=== PATIENT | female | born 1990 | race Caucasian/White ===

== ENCOUNTER 2021-07-06 14:24 | Emergency (ER) | payer MEDICAID, OTHER ==
[~2021-07-06] VITALS: Ht 165.1 cm; Wt 127.3 kg
[2021-07-06] MEDS ORDERED: LEVO200T4 (14:40)
[2021-07-06] MEDS ORDERED: SERT50TA29 PO (14:40)
[2021-07-06] MEDS ORDERED: PANT40TA29 (14:40)
[2021-07-06 17:44] LABS: BASO # 0.1 10^3/uL (0.0-0.2); BASO % 0.7 % (0.0-1.0); EOS # 0.2 10^3/uL (0.0-0.5); EOS % 2.1 % (0.0-3.0); HEMATOCRIT 34.1 % (36.0-47.0); HEMOGLOBIN 10.8 g/dl (12.0-15.5); LYMPH # 2.6 10^3/uL (1.5-5.0); MEAN CORPUSCULAR HEMOGLOBIN 27.6 pg (27.0-33.0); MEAN CORPUSCULAR HGB CONC 31.7 g/dl (32.0-36.5); MEAN CORPUSCULAR VOLUME 87.2 fl (80.0-96.0); MONO # 0.4 10^3/uL (0.0-0.8); MONO % 4.6 % (2.0-8.0); NEUTROPHILS # 5.4 10^3/uL (1.5-8.5); PLATELET COUNT, AUTOMATED 309 10^3/uL (150-450); RED BLOOD COUNT 3.91 10^6/uL (4.00-5.40); WHITE BLOOD COUNT 8.7 10^3/uL (4.0-10.0)
[2021-07-06 18:03] LABS: ALBUMIN 3.9 GM/DL (3.2-5.2); ALT/SGPT 26 U/L (12-78); BILIRUBIN,DIRECT < 0.1 MG/DL (0.0-0.2); BILIRUBIN,TOTAL 0.3 MG/DL (0.2-1.0); LIPASE 78 U/L (73-393)
--- OUTSIDE RECORDS SUMMARY | 2021-07-06 18:31 | CCD ---
Author Author [facility] Organization [facility] Address Unknown Phone Unavailable Care Team Providers Care Fixed Income Portfolio Manager Name Role Phone Raleigh OAKES MD Unavailable Unavailable Raleigh OAKES MD Unavailable Unavailable Raleigh OAKSE MD Unavailable Unavailable Raleigh OAKES MD Unavailable Unavailable Raleigh OAKES MD Unavailable Unavailable Raleigh OAKES MD Unavailable Unavailable Raleigh OAKES MD Unavailable Unavailable Raleigh OAKES MD Unavailable Unavailable Raleigh OAKES MD Unavailable Unavailable Raleigh OAKES MD Unavailable Unavailable Raleigh OAKES MD Unavailable Unavailable Raleigh OAKES MD Unavailable Unavailable Raleigh OAKES MD Unavailable Unavailable Raleigh OAKES MD Unavailable Unavailable Raleigh OAKES MD Unavailable Unavailable Raleigh OAKES MD Unavailable Unavailable Raleigh OAKES MD Unavailable Unavailable Raleigh OAKES MD Unavailable Unavailable Raleigh OAKES MD Unavailable Unavailable Raleigh OAKES MD Unavailable Unavailable Raleigh OAKES MD Unavailable Unavailable Raleigh OAKES MD Unavailable Unavailable Raleigh OAKES MD Unavailable Unavailable Raleigh OAKES MD Unavailable Unavailable HAMPTON, ELISABETH MD Unavailable Unavailable HAMPTON, ELISABETH MD Unavailable Unavailable HAMPTON, ELISABETH MD Unavailable Unavailable HAMPTON, ELISABETH MD Unavailable Unavailable HAMPTON, ELISABETH MD Unavailable Unavailable HAMPTON, ELISABETH MD Unavailable Unavailable HAMPTON, ELISABETH MD Unavailable Unavailable HAMPTON, ELISABETH MD Unavailable Unavailable HAMPTON, ELISABETH MD Unavailable Unavailable HAMPTON, ELISABETH MD Unavailable Unavailable HAMPTON, ELISABETH MD Unavailable Unavailable HAMPTON, ELISABETH MD Unavailable Unavailable HAMPTON, ELISABETH MD Unavailable Unavailable HAMPTON, ELISABETH MD Unavailable Unavailable HAMPTON, ELISABETH MD Unavailable Unavailable HAMPTON, ELISABETH MD Unavailable Unavailable HAMPTON, ELISABETH MD Unavailable Unavailable HAMPTON, ELISABETH MD Unavailable Unavailable HAMPTON, ELISABETH MD Unavailable Unavailable HAMPTON, ELISABETH MD Unavailable Unavailable HAMPTON, ELISABETH MD Unavailable Unavailable HAMPTON, ELISABETH MD Unavailable Unavailable HAMPTON, ELISABETH MD Unavailable Unavailable HAMPTON, ELISABETH MD Unavailable Unavailable HAMPTON, ELISABETH MD Unavailable Unavailable HAMPTON, ELISABETH MD Unavailable Unavailable HAMPTON, ELISABETH MD Unavailable Unavailable HAMPTON, ELISABETH MD Unavailable Unavailable HAMPTON, ELISABETH MD Unavailable Unavailable HAMPTON, ELISABETH MD Unavailable Unavailable HAMPTON, ELISABETH MD Unavailable Unavailable HAMPTON, ELISABETH MD Unavailable Unavailable HAMPTON, ELISABETH MD Unavailable Unavailable HAMPTON, ELISABETH MD Unavailable Unavailable HAMPTON, ELISABETH MD Unavailable Unavailable HAMPTON, ELISABETH MD Unavailable Unavailable HAMPTON, ELISABETH MD Unavailable Unavailable HAMPTON, ELISABETH MD Unavailable Unavailable HAMPTON, ELISABETH MD Unavailable Unavailable HAMPTON, ELISABETH MD Unavailable Unavailable HAMPTON, ELISABETH MD Unavailable Unavailable HAMPTON, ELISABETH MD Unavailable Unavailable HAMPTON, ELISABETH MD Unavailable Unavailable HAMPTON, ELISABETH MD Unavailable Unavailable HAMPTON, ELISABETH MD Unavailable Unavailable HAMPTON, ELISABETH MD Unavailable Unavailable HAMPTON, ELISABETH MD Unavailable Unavailable HAMPTON, ELISABETH MD Unavailable Unavailable HAMPTON, ELISABETH MD Unavailable Unavailable HAMPTON, ELISABETH MD Unavailable Unavailable HAMPTON, ELISABETH MD Unavailable Unavailable HAMPTON, ELISABETH MD Unavailable Unavailable ELISABETH HAMPTON MD Unavailable Unavailable ELISABETH HAMPTON MD Unavailable Unavailable ELISABETH HAMPTON MD Unavailable Unavailable ELISABETH HAMPTON MD Unavailable Unavailable ELISABETH HAMPTON MD Unavailable Unavailable ELISABETH HAMPTON MD Unavailable Unavailable ELISABETH HAMPTON MD Unavailable Unavailable ELISABETH HAMPTON MD Unavailable Unavailable ELISABETH HAMPTON MD Unavailable Unavailable ELISABETH HAMPTON MD Unavailable Unavailable ELISABETH HAMPTON MD Unavailable Unavailable ELISABETH HAMPTON MD Unavailable Unavailable ELISABETH HAMPTON MD Unavailable Unavailable ELISABETH HAMPTON MD Unavailable Unavailable ELISABETH HAMPTON MD Unavailable Unavailable ELISABETH HAMPTON MD Unavailable Unavailable ELISABETH HAMPTON MD Unavailable Unavailable ELISABETH HAMPTON MD Unavailable Unavailable SATNAM, B VERENICE AIR CONDITIONER INSTALLER HELPER Unavailable Unavailable SATNAM, B VERENICE AIR CONDITIONER INSTALLER HELPER Unavailable Unavailable SATNAM, B VERENICE AIR CONDITIONER INSTALLER HELPER Unavailable Unavailable SATNAM, B VERENICE AIR CONDITIONER INSTALLER HELPER Unavailable Unavailable SATNAM, B VERENICE AIR CONDITIONER INSTALLER HELPER Unavailable Unavailable SATNAM, B VERENICE AIR CONDITIONER INSTALLER HELPER Unavailable Unavailable SATNAM, B VERENICE AIR CONDITIONER INSTALLER HELPER Unavailable Unavailable SATNAM, B VERENICE AIR CONDITIONER INSTALLER HELPER Unavailable Unavailable SATNAM, B VERENICE AIR CONDITIONER INSTALLER HELPER Unavailable Unavailable SATNAM, B VERENICE AIR CONDITIONER INSTALLER HELPER Unavailable Unavailable SATNAM, B VERENICE AIR CONDITIONER INSTALLER HELPER Unavailable Unavailable SATNAM, B VERENICE AIR CONDITIONER INSTALLER HELPER Unavailable Unavailable SATNAM, B VERENICE AIR CONDITIONER INSTALLER HELPER Unavailable Unavailable SATNAM, B VERENICE AIR CONDITIONER INSTALLER HELPER Unavailable Unavailable SATNAM, B VERENICE AIR CONDITIONER INSTALLER HELPER Unavailable Unavailable SATNAM, B VERENICE AIR CONDITIONER INSTALLER HELPER Unavailable Unavailable SATNAM, B VERENICE AIR CONDITIONER INSTALLER HELPER Unavailable Unavailable SATNAM, B VERENICE AIR CONDITIONER INSTALLER HELPER Unavailable Unavailable SATNAM, B VERENICE AIR CONDITIONER INSTALLER HELPER Unavailable Unavailable SATNAM, B VERENICE AIR CONDITIONER INSTALLER HELPER Unavailable Unavailable SATNAM, B VERENICE AIR CONDITIONER INSTALLER HELPER Unavailable Unavailable SATNAM, B VERENICE AIR CONDITIONER INSTALLER HELPER Unavailable Unavailable SATNAM, B VERENICE AIR CONDITIONER INSTALLER HELPER Unavailable Unavailable SATNAM, B VERENICE AIR CONDITIONER INSTALLER HELPER Unavailable Unavailable SATNAM, B VERENICE AIR CONDITIONER INSTALLER HELPER Unavailable Unavailable SATNAM, B VERENICE AIR CONDITIONER INSTALLER HELPER Unavailable Unavailable SATNAM, B VERENICE AIR CONDITIONER INSTALLER HELPER Unavailable Unavailable SATNAM, B VERENICE AIR CONDITIONER INSTALLER HELPER Unavailable Unavailable SATNAM, B VERENICE AIR CONDITIONER INSTALLER HELPER Unavailable Unavailable SATNAM, B VERENICE AIR CONDITIONER INSTALLER HELPER Unavailable Unavailable SATNAM, B VERENICE AIR CONDITIONER INSTALLER HELPER Unavailable Unavailable SATNAM, B VERENICE AIR CONDITIONER INSTALLER HELPER Unavailable Unavailable SATNAM, B VERENICE AIR CONDITIONER INSTALLER HELPER Unavailable Unavailable SATNAM, B VERENICE AIR CONDITIONER INSTALLER HELPER Unavailable Unavailable SATNAM, B VERENICE AIR CONDITIONER INSTALLER HELPER Unavailable Unavailable SATNAM, B VERENICE AIR CONDITIONER INSTALLER HELPER Unavailable Unavailable SATNAM, B VERENICE AIR CONDITIONER INSTALLER HELPER Unavailable Unavailable SATNAM, B VERENICE AIR CONDITIONER INSTALLER HELPER Unavailable Unavailable SATNAM, B VERENICE AIR CONDITIONER INSTALLER HELPER Unavailable Unavailable SATNAM, B VERENICE AIR CONDITIONER INSTALLER HELPER Unavailable Unavailable SATNAM, B VERENICE AIR CONDITIONER INSTALLER HELPER Unavailable Unavailable SATNAM, B VERENICE AIR CONDITIONER INSTALLER HELPER Unavailable Unavailable SATNAM, B VERENICE AIR CONDITIONER INSTALLER HELPER Unavailable Unavailable SATNAM, B VERENICE AIR CONDITIONER INSTALLER HELPER Unavailable Unavailable SATNAM, B VERENICE AIR CONDITIONER INSTALLER HELPER Unavailable Unavailable SATNAM, B VERENICE AIR CONDITIONER INSTALLER HELPER Unavailable Unavailable SATNAM, B VERENICE AIR CONDITIONER INSTALLER HELPER Unavailable Unavailable SATNAM, B VERENICE AIR CONDITIONER INSTALLER HELPER Unavailable Unavailable SATNAM, B VERENICE AIR CONDITIONER INSTALLER HELPER Unavailable Unavailable SATNAM, B VERENICE AIR CONDITIONER INSTALLER HELPER Unavailable Unavailable SATNAM, B VERENICE AIR CONDITIONER INSTALLER HELPER Unavailable Unavailable SATNAM, B VERENICE AIR CONDITIONER INSTALLER HELPER Unavailable Unavailable SATNAM, B VERENICE AIR CONDITIONER INSTALLER HELPER Unavailable Unavailable SATNAM, B VERENICE AIR CONDITIONER INSTALLER HELPER Unavailable Unavailable SATNAM, B VERENICE AIR CONDITIONER INSTALLER HELPER Unavailable Unavailable SATNAM, B VERENICE AIR CONDITIONER INSTALLER HELPER Unavailable Unavailable SATNAM, B VERENICE AIR CONDITIONER INSTALLER HELPER Unavailable Unavailable SATNAM, B VERENICE AIR CONDITIONER INSTALLER HELPER Unavailable Unavailable SATNAM, B VERENICE AIR CONDITIONER INSTALLER HELPER Unavailable Unavailable SATNAM, B VERENICE AIR CONDITIONER INSTALLER HELPER Unavailable Unavailable SATNAM, B VERENICE AIR CONDITIONER INSTALLER HELPER Unavailable Unavailable SATNAM, B VERENICE AIR CONDITIONER INSTALLER HELPER Unavailable Unavailable QUACH, LESLI MICHELLE AIR CONDITIONER INSTALLER HELPER Unavailable Unavailable QUACH, LESLI MICHELLE AIR CONDITIONER INSTALLER HELPER Unavailable Unavailable QUACH, LESLI MICHELLE AIR CONDITIONER INSTALLER HELPER Unavailable Unavailable QUACH, LESLI MICHELLE AIR CONDITIONER INSTALLER HELPER Unavailable Unavailable QUACH, LESLI MICHELLE AIR CONDITIONER INSTALLER HELPER Unavailable Unavailable QUACH, LESLI MICHELLE AIR CONDITIONER INSTALLER HELPER Unavailable Unavailable QUACH, LESLI MICHELLE AIR CONDITIONER INSTALLER HELPER Unavailable Unavailable QUACH, LESLI MICHELLE AIR CONDITIONER INSTALLER HELPER Unavailable Unavailable QUACH, LESLI MICHELLE AIR CONDITIONER INSTALLER HELPER Unavailable Unavailable QUACH, LESLI MICHELLE AIR CONDITIONER INSTALLER HELPER Unavailable Unavailable QUACH, LESLI MICHELLE AIR CONDITIONER INSTALLER HELPER Unavailable Unavailable QUACH, LESLI MICHELLE AIR CONDITIONER INSTALLER HELPER Unavailable Unavailable QUACH, LESLI MICHELLE AIR CONDITIONER INSTALLER HELPER Unavailable Unavailable QUACH, LESLI MICHELLE AIR CONDITIONER INSTALLER HELPER Unavailable Unavailable QUACH, LESLI MICHELLE AIR CONDITIONER INSTALLER HELPER Unavailable Unavailable QUACH, LESLI MICHELLE AIR CONDITIONER INSTALLER HELPER Unavailable Unavailable QUACH, LESLI MICHELLE AIR CONDITIONER INSTALLER HELPER Unavailable Unavailable QUACH, LESLI MICHELLE AIR CONDITIONER INSTALLER HELPER Unavailable Unavailable QUAHC, LESLI MICHELLE AIR CONDITIONER INSTALLER HELPER Unavailable Unavailable QUACH, LESLI MICHELLE AIR CONDITIONER INSTALLER HELPER Unavailable Unavailable QUACH, LESLI MICHELLE AIR CONDITIONER INSTALLER HELPER Unavailable Unavailable QUACH, LESLI MICHELLE AIR CONDITIONER INSTALLER HELPER Unavailable Unavailable QUACH, LESLI MICHELLE AIR CONDITIONER INSTALLER HELPER Unavailable Unavailable JERICA, A DILIA MD Unavailable Unavailable JERICA, A DILIA MD Unavailable Unavailable JERICA, A DILIA MD Unavailable Unavailable JERICA, A DILIA MD Unavailable Unavailable JERICA, A DILIA MD Unavailable Unavailable JERICA, A DILIA MD Unavailable Unavailable JERICA, A DILIA MD Unavailable Unavailable JERICA, A DILIA MD Unavailable Unavailable JERICA, A DILIA MD Unavailable Unavailable JERICA, A DILIA MD Unavailable Unavailable GINYARD, Daly WARNER MD Unavailable Unavailable GINYARD, Daly WARNER MD Unavailable Unavailable GINYARD, Daly WARNER MD Unavailable Unavailable GINYARD, Daly WARNER MD Unavailable Unavailable GINYARD, Daly WARNER MD Unavailable Unavailable GINYARD, Daly WARNER MD Unavailable Unavailable GINYARD, Daly WARNER MD Unavailable Unavailable GINYARD, Daly WARNER MD Unavailable Unavailable GINYARD, Daly WARNER MD Unavailable Unavailable GINYARD, Daly WARNER MD Unavailable Unavailable GINYARD, Daly WARNER MD Unavailable Unavailable GINYARD, Daly WARNER MD Unavailable Unavailable GINYARD, Daly WARNER MD Unavailable Unavailable GINYARD, Daly WARNER MD Unavailable Unavailable GINYARD, Daly WARNER MD Unavailable Unavailable GINYARD, Daly WARNER MD Unavailable Unavailable GINYARD, Daly WARNER MD Unavailable Unavailable GINYARD, Daly WARNER MD Unavailable Unavailable GINYARD, Daly WARNER MD Unavailable Unavailable GINYARD, Daly WARNER MD Unavailable Unavailable GINYARD, Daly WARNER MD Unavailable Unavailable GINYARD, Daly WARNER MD Unavailable Unavailable GINYARD, Daly WARNER MD Unavailable Unavailable GINYARD, Daly WARNER MD Unavailable Unavailable GINYARD, Daly WARNER MD Unavailable Unavailable GINYARD, Daly WARNER MD Unavailable Unavailable Re-disclosure Warning The records that you are about to access may contain information from federally-assisted alcohol or drug abuse programs. If such information is present, then the following federally mandated warning applies: This information has been disclosed to you from records protected by federal confidentiality rules (42 CFR part 2). The federal rules prohibit you from making any further disclosure of this information unless further disclosure is expressly permitted by the written consent of the person to whom it pertains or as otherwise permitted by 42 CFR part 2. A general authorization for the release of medical or other information is NOT sufficient for this purpose. The Federal rules restrict any use of the information to criminally investigate or prosecute any alcohol or drug abuse patient.The records that you are about to access may contain highly sensitive health information, the redisclosure of which is protected by Article 27-F of the [facility] Public Health law. If you continue you may have access to information: Regarding HIV / AIDS; Provided by facilities licensed or operated by the [facility] Office of Mental Health; or Provided by the [facility] Office for People With Developmental Disabilities. If such information is present, then the following [facility] mandated warning applies: This information has been disclosed to you from confidential records which are protected by state law. State law prohibits you from making any further disclosure of this information without the specific written consent of the person to whom it pertains, or as otherwise permitted by law. Any unauthorized further disclosure in violation of state law may result in a fine or long-term sentence or both. A general authorization for the release of medical or other information is NOT sufficient authorization for further disc losure. Allergies and Adverse Reactions Type Description Substance Reaction Status Data Source(s ) No Known Environmental Allergies No Known Environmental Al [facility] Food allergy ILAN D ILAN D [facility] Are a Hospital Propensity to adverse reactions CLAFORAN CLAFORAN [facility] Drug allergy TETRACYCLINE TETRACYCLINE [facility] Drug allergy CLINDAMYCIN CLINDAMYCIN [facility] A [facility] Family History Family Member Name Family Member Gender Family Member Status Date o f Status Description Data Source(s) Unknown Unknown Problem [facility] ([facility], ) Encounters Encounter Providers Location Date Indications Data Source(s ) Outpatient Attender: DK OAKES MD 04/08 01:52:31 PM EDT - 04/08/2021 02:57:58 PM EDT [facility] ([facility] ) [place] [address] [address] 04/05/2021 12:00:00 AM EDT eCW1 ([facility]) Outpatient Attender: MICHELLE QUACH NPConsultant: ELISABETH HAMPTON MD 11/03/2020 02:02:00 PM EST - 11/03/2020 02:02:00 PM EST [facility] Outpatient Attender: MICHELLE QUACH AIR CONDITIONER INSTALLER HELPER Family Practice 11/03/2020 01 :00:00 PM EST [facility] ([facility]) [place] [address] [address] 10/25/2020 12:00:00 AM EST eCW1 ([facility]) [place]patient [address] [address] 10/19/2020 12:00:00 AM EST eCW1 ([facility]) [place] [address] [address] 07/09/2020 12:00:00 AM EDT eCW1 ([facility]) Outpatient Attender: MICHELLE QUACH NPConsultant: ELISABETH HAMPTON MD 05/19/2020 02:28:00 PM EDT - 05/19/2020 02:28:00 PM EDT [facility] Outpatient Attender: VERENICE HAY NP Physical Therapy 03:00:00 PM EDT MED[facility] ([facility]) Outpatient Attender: ALANA CLARK MDConsultant: ELISABETH HAMPTON MD 05/12/2020 02:25:00 PM EDT - 05/12/2020 02:25:00 PM [facility] Inpatient Attender: ALANA CLARK MDConsultant: ELISABETH HAMPTON MD 03/29/2020 08:27:00 AM EDT - 04/01/2020 04:35:00 PM [facility] Patient discharged. Outpatient Attender: DILIA PIZANO MDConsultant: ELISABETH CORONADO MD 04/04/2018 01:41:24 PM [facility] Medications Medication Brand Name Start Date Product Form Dose Route Admi nistrative Instructions Pharmacy Instructions Status Indications Reaction Description Data Source(s) 800-160 mg 04/08/2021 12:00:00 AM EDT tablet 10 TAKE ONE TABLET BY MOUTH TWICE A DAY FOR 5 DAYS TAKE ONE TABLET BY MOUTH TWICE A DAY FOR 5 DAYS SOLD: 04/08/2021 [facility] 50 mg 04/05/2021 12:00:00 AM EDT tablet 45 TAKE 1 & 1/2 TABLETS BY MOUTH ONCE DAILY TAKE 1 & 1/2 TABLETS BY MOUTH ONCE DAILY SOLD: 05/18/2021 [facility] 50 mg 04/05/2021 12:00:00 AM EDT tablet 45 TAKE 1 & 1/2 TABLETS BY MOUTH ONCE DAILY TAKE 1 & 1/2 TABLETS BY MOUTH ONCE DAILY SOLD: 04/07/2021 [facility] 150 mg 11/04/2020 12:00:00 AM EST tablet 3 TAKE ONE TABLET BY MOUTH ONCE ON DAYS 1,3 AND 7 TAKE ONE TABLET BY MOUTH ONCE ON DAYS 1,3 AND 7 SOLD: 2020 [facility] Fluconazole 150 MG Oral Tablet Fluconazole 11/03/2020 12:00:00 AM EST ORAL active MEDENT ([facility]) 50 mg 10/26/2020 12:00:00 AM EST tablet 45 TAKE 1 & 1/2 TABLETS BY MOUTH ONCE DAILY TAKE 1 & 1/2 TABLETS BY MOUTH ONCE DAILY SOLD: 02/23/2021 [facility] 50 mg 10/26/2020 12:00:00 AM EST tablet 45 TAKE 1 & 1/2 TABLETS BY MOUTH ONCE DAILY TAKE 1 & 1/2 TABLETS BY MOUTH ONCE DAILY SOLD: 10/27/2020 [facility] pantoprazole 40 MG Delayed Release Oral Tablet PANTOPRAZOLE SODIUM 10/26/2020 12:00:00 AM EST tablet,delayed release (DR/EC) 60 T DRAGAN ONE TABLET BY MOUTH TWICE A DAY TAKE ONE TABLET BY MOUTH TWICE A DAY SOLD: 02/23/2021 [facility] pantoprazole 40 MG Delayed Release Oral Tablet PANTOPRAZOLE SODIUM 10/26/2020 12:00:00 AM EST tablet,delayed release (DR/EC) 60 T DRAGAN ONE TABLET BY MOUTH TWICE A DAY TAKE ONE TABLET BY MOUTH TWICE A DAY SOLD: 12/22/2020 [facility] pantoprazole 40 MG Delayed Release Oral Tablet PANTOPRAZOLE SODIUM 10/26/2020 12:00:00 AM EST tablet,delayed release (DR/EC) 60 T DRAGAN ONE TABLET BY MOUTH TWICE A DAY TAKE ONE TABLET BY MOUTH TWICE A DAY SOLD: 10/27/2020 [facility] pantoprazole 40 MG Delayed Release Oral Tablet PANTOPRAZOLE SODIUM 10/26/2020 12:00:00 AM EST tablet,delayed release (DR/EC) 60 T DRAGAN ONE TABLET BY MOUTH TWICE A DAY TAKE ONE TABLET BY MOUTH TWICE A DAY SOLD: 05/18/2021 [facility] Sertraline 50 MG Oral Tablet Sertraline HCL 05/19/2020 12:00:00 AM EDT completed [facility] ([facility]) Levothyroxine Sodium 0.1 MG Oral Tablet Levothyroxine Sodium 05/13/2020 12:00:00 AM EDT ORAL active MEDENT ([facility]) Insurance Providers Payer name Policy type / Coverage type Policy ID Covered green party ID Covered green party's relationship to james Policy James Plan Information JOE I [id number] Self [id number] JOE MEDICAID [id number] [facility] [address] 7 [id number] [employer] [id number] Self [id number] [place] [id number] 18 [id number] [place] [id number] [place] [id number] 18 [id number] [place] [id number] 18 [id number] [place] [id number] 18 [id number] UNAVAILABLE [place] BLE [place] [id number] S [id number] Joe Care Commercial [id number] Self [id number] [place] Commercial [id number] Self [id number] Joe Medicaid/P/P Commercial [id number] Self [id number] JOE MEDICAID PI PI Joe Medicaid/CHP/FHP Commercial [id number] Self [id number] [place] [employer] Commercial [id number] [id number] 9.510.4509.0 Self [id number] [place] [id number] 2.16.840.1.601233.3.227.9 9.510.4509.0 Self [id number] [place] Medicaid/CHP/FHP Commercial [id number] Self [id number] [facility] Health Maintenance Organization ([facility]) [id number] Family Dependent [id number] [place] Care [place] Medicaid [id number] [id number] Self [id number] Joe Medicaid/CHP/FHP Commercial [id number] [id number] Self [id number] [employer] Commercial [id number] 2.16.840.1.138181.3.227.9 9.510.4509.0 Self [id number] [place] [id number] 2.16840.1.633198.3.227.9 9.510.4509.0 Self [id number] [place] [employer] Commercial [id number] 2.16.840.1.923949.3.227.9 9.510.4509.0 Self [id number] [place] [id number] 2.16.840.1.467689.3.227.9 9.510.4509.0 Self [id number] [employer] Commercial [id number] 2.16.840.1.048374.3.227.9 9.510.4509.0 Self [id number] [place] [id number] 2.16.840.1.995227.3.227.9 9.510.4509.0 Self [id number] [employer] Commercial [id number] 2.16840.1.872644.3.227.9 9.510.4509.0 Self [id number] [place] [id number] 2.160.1.440009.3.227.9 9.510.4509.0 Self [id number] [employer] Commercial [id number] 2.840.1.048766.3.227.9 9.510.4509.0 Self [id number] [place] [id number] 2.0.1.875975.3.227.9 9.510.4509.0 Self [id number] [facility] Health Maintenance Organization ([facility]) [id number] Family Dependent [id number] [place] [facility] [place] Medicaid [id number] 2.[id number] Self [id number] [employer] Commercial [id number] 2.0.1.579333.3.227.9 9.510.4509.0 Self [id number] [place] [id number] 2.16840.1.340522.3.227.9 9.510.4509.0 Self [id number] [employer] Commercial [id number] 2.16840.1.245232.3.227.9 9.510.4509.0 Self [id number] [place] [id number] 2.16840.1.639570.3.227.9 9.510.4509.0 Self [id number] [place] [id number] 2.16.840.1.707003.3.227.9 9.510.4509.0 Self [id number] [employer] Commercial [id number] 2.16.840.1.155720.3.227.9 9.510.4509.0 Self [id number] [place] [id number] 2.16.840.1.197112.3.227.9 9.510.4509.0 Self [id number] [employer] Commercial [id number] 2.16.840.1.090932.3.227.9 9.510.4509.0 Self [id number] [place] [id number] 2.16.840.1.548943.3.227.9 9.510.4509.0 Self [id number] [employer] Commercial [id number] 2.16.840.1.582233.3.227.9 9.510.4509.0 Self [id number] [place] [id number] 2.16.840.1.395534.3.227.9 9.510.4509.0 Self [id number] [place] [facility] Commercial [id number] 2.16.840.1.086958.3.227.9 9.510.4509.0 Self [id number] [place] [id number] 2.16.840.1.381583.3.227.9 9.510.4509.0 Self [id number] [place] [id number] 2.16.840.1.156253.3.227.9 9.510.4509.0 Self [id number] [place] [id number] 2.16.840.1.346089.3.227.9 9.510.4509.0 Self [id number] [place] [id number] Self [id number] [place] [facility] [place] [id number] Self [id number] [facility] ([facility] [place]) [id number] Family Dependent [id number] [place] [facility] [place] Medicaid [id number] Self [id number] [place] [facility] [place] [id number] Self [id number] [place] [facility] [place] [id number] Self [id number] [place] [facility] [place] [id number] Self [id number] [place] [facility] [place] [id number] Self [id number] [place] [facility] [place] [id number] Self [id number] [place] [facility] [place] [id number] Self [place] [facility] -CLIN[facility] [id number] 18 [id number] MEDICAID -CLINIC [id number] MEDICAID -O/P [id number] 18 [id number] N REGIONAL CLAIMS [place]-O/P [id number] 01 [id number] [employer] XIX -O [id number] N REGIONAL CLAIMS [place] -CLIN[facility] [id number] 01 [id number] JOE [id number] SP [id number] 200 [id number] [facility] MEDICAID [id number] SP [id number] Y [facility] [id number] Problems, Conditions, and Diagnoses Code Display Name Description Problem Type Effective Dates Data Source(s) B373 Candidiasis of vulva and vagina Candidiasis of vulva a nd vagina Diagnosis 11/03/2020 02:02:00 PM EST [facility] O906 mood disturbance mood disturbanc e Diagnosis 05/19/2020 02:28:00 PM EDT [facility] Z392 Encounter for routine follow- up Encounter for routine follow-up Diagnosis 05/12/2020 02:25:00 PM EDT [facility] K21.9 Gastro-esophageal reflux Gastro-esophageal reflux Prob fran 10/19/2020 12:00:00 AM EST eCW ([facility]) E55.9 Vitamin D deficiency Vitamin D deficiency Problem 10/19/2020 12:00:00 AM EST [facility] ([facility]) F41.1 [id number] REID (generalized anxiety disorder) Proble m 10/19/2020 12:00:00 AM EST eCW ([facility]) Surgeries/Procedures Procedure Description Date Indications Data Source(s) Care Only 05/19/2020 12:00:00 AM EDT [facility] ([facility]) Results ID Date Data Source [id number] 11/03/2020 02:44:00 PM EST [facility] ([facility]) Name Value Range Interpretation Code Description Data Cherry rce(s) Supporting Document(s) Color of Urine Laboratory test result [facility] ([facility]) Appearance of Urine Laboratory test result [facility] ([facility]) Leukocytes Laboratory test result [facility] ([facility]) Spec [place] 1.015 1.001-1.030 [facility] ([facility]) pH of Urine by Test strip 6 5-9 MEDE NT ([facility]) Protein [Presence] in Urine by Test strip Laboratory test result [facility] ([facility]) Nitrate [Presence] in Urine Laboratory test result [facility] ([facility]) Urobilinogen Laboratory test result [facility] ([facility]) Ketones [Presence] in Urine by Test strip Laboratory test result [facility] ([facility]) Inhouse Glucose Laboratory test result [facility] ([facility]) Bilirubin.total [Presence] in Urine by Test strip Laboratory test res ult [facility] ([facility]) Blood type and Indirect antibody screen panel - Blood Laboratory test result [facility] ([facility]) ID Date Data Source [id number] 11/03/2020 02:37:00 PM EST [facility] ([facility]) Name Value Range Interpretation Code Description Data Cherry rce(s) Supporting Document(s) Wet mount panel - Vaginal fluid Laboratory test result [facility] ([facility]) ID Date Data Source [id number] 11/06/2020 04:14:00 PM EST [facility] Name Value Range Interpretation Code Description Data Cherry rce(s) Supporting Document(s) SOURCE: Genital [facility] [place] sp rRNA [Presence] in Vaginal fluid by DNA probe Negative N egative [facility] Gardnerella vaginalis rRNA [Presence] in Genital specimen by DNA probe Negative Negative [facility] Trichomonas vaginalis rRNA [Presence] in Genital specimen by DNA probe Negative Negative [facility] ID Date Data Source [id number] 11/03/2020 02:36:00 PM EST [facility] ([facility]) Name Value Range Interpretation Code Description Data Cherry rce(s) Supporting Document(s) Z#Other Observations Laboratory test result [facility] ([facility]) ID Date Data Source [id number] 05/12/2020 03:39:00 PM EDT [facility] ([facility]) Name Value Range Interpretation Code Description Data Cherry rce(s) Supporting Document(s) Source: Laboratory test result [facility] ([facility]) {SOURCE: Genital~.~.~Z39.2 Chlamydia trachomatis,Sally Laboratory test result [facility] ([facility]) {SOURCE: Genital~.~.~Z39.2 Neisseria gonorrhoeae,Sally Laboratory test result [facility] ([facility]) {SOURCE: Genital~.~.~Z39.2 ID Date Data Source [id number] 05/14/2020 09:41:00 PM EDT [facility] Name Value Range Interpretation Code Description Data Cherry rce(s) Supporting Document(s) SOURCE: Genital [facility] Chlamydia trachomatis rRNA [Presence] in Unspecified specimen by Probe and target amplification method Negative Negative [facility] Neisseria gonorrhoeae rRNA [Presence] in Unspecified specimen by Probe and target amplification method Negative Negative [facility] ID Date Data Source [id number] 05/10/2020 03:25:00 PM EDT [facility] ([facility] ) Name Value Range Interpretation Code Description Data Cherry rce(s) Supporting Document(s) Thyrotropin [Units/volume] in Serum or Plasma by Detec tion limit <= 0.05 mIU/L 51.400 uIU/ML 0.358-3.740 [facility] ([facility] ) Thyroxine (T4) free [Mass/volume] in Serum or Plasma 0.72 ng/dL 0.76- 1.46 [facility] ([facility] ) Procedure Social History Code Duration Value Status Description Data Source(s ) Smoking 10/19/2020 12:00:00 AM EST Never Smoker completed Never S moker eCW1 ([facility]) Smoking 10/19/2020 12:00:00 AM EST Never Smoker completed Never S moker eCW1 ([facility]) Smoking 10/19/2020 12:00:00 AM EST Never Smoker completed Never S moker eCW1 ([facility]) Smoking 05/13/2020 12:00:00 AM EDT Never Smoked Cigarettes com pleted Never Smoked Cigarettes [facility] ([facility] ) Vital Signs ID Date Data Source [id number] Name Value Range Interpretation Code Description Data Source(s) Systolic blood pressure 162 mm[Hg] 162 mm[Hg] M EDENT ([facility] ) Diastolic blood pressure 88 mm[Hg] 88 mm[Hg] [facility] ([facility]) Body height 64 [in_i] 64 [in_i] [facility] 5'4" Body weight 282.00 [lb_av] 282.00 [lb_av] MED[facility] T ([facility]) Body mass index (BMI) [Ratio] 48.4 kg/m2 48.4 k g/m2 [facility] ([facility]) [place] body weight 120 [lb_av] 120 [lb_av] [facility] T ([facility]) Body weight 127.915 kg 127.915 kg [facility] ([facility]) Body surface area Derived from formula 2.26 m2 2.26 m2 [facility] ([facility]) Systolic blood pressure 132 mm[Hg] 132 mm[Hg] M EDENT ([facility]) Body mass index (BMI) [Ratio] 47.7 kg/m2 47.7 k g/m2 [facility] ([facility]) Body surface area Derived from formula 2.25 m2 2.25 m2 [facility] ([facility]) Diastolic blood pressure 84 mm[Hg] 84 mm[Hg] [facility] ([facility]) Heart rate 78 /min 78 /min [facility] ([facility]) Body temperature 96.6 [degF] 96.6 [degF] [facility] ([facility]) Body weight 278.00 [lb_av] 278.00 [lb_av] MEDEN T ([facility]) Body weight 126.101 kg 126.101 kg [facility] ([facility]) Body height 64 [in_i] 64 [in_i] [facility] ([facility]) 5'4" Body weight 278.6 [lb_av] 278.6 [lb_av] eCW1 ([facility]) Body height 64 [in_i] 64 [in_i] eCW1 ([facility]) Body mass index (BMI) [Ratio] 47.82 kg/m2 47.82 kg/m2 W1 ([facility]) Body temperature 97.2 [degF] 97.2 [degF] eCW1 ( [facility]) Systolic blood pressure 132 mm[Hg] 132 mm[Hg] e CW1 ([facility]) Diastolic blood pressure 80 mm[Hg] 80 mm[Hg] eCW1 ([facility]) Respiratory rate 18 /min 18 /min eCW1 ([facility]) Heart rate 100 /min 100 /min eCW1 ([facility]) Body temperature 97.0 [degF] 97.0 [degF] [facility] ([facility]) Respiratory rate 18 /min 18 /min [facility] ( [facility]) Oxygen saturation in Arterial blood by Pulse oximetry 98 % 98 % [facility] ([facility]) Body weight 250.38 [lb_av] 250.38 [lb_av] MEDEN T ([facility]) Body weight 113.570 kg 113.570 kg [facility] ([facility]) Body height 64 [in_i] 64 [in_i] [facility] ([facility]) 5'4" Body mass index (BMI) [Ratio] 43.0 kg/m2 43.0 k g/m2 [facility] ([facility]) Body surface area Derived from formula 2.15 m2 2.15 m2 [facility] ([facility]) Systolic blood pressure 132 mm[Hg] 132 mm[Hg] M EDENT ([facility]) Diastolic blood pressure 62 mm[Hg] 62 mm[Hg] [facility] ([facility]) Heart rate 86 /min 86 /min [facility] ([facility]) Heart rate 82 /min 82 /min [facility] ([facility] ) Systolic blood pressure 128 mm[Hg] 128 mm[Hg] M EDENT ([facility] ) Diastolic blood pressure 84 mm[Hg] 84 mm[Hg] [facility] ([facility] ) Body height 65 [in_i] 65 [in_i] [facility] ([facility]) 5'5" Body weight 255.31 [lb_av] 255.31 [lb_av] MEDEN T ([facility] ) Body mass index (BMI) [Ratio] 42.5 kg/m2 42.5 k g/m2 [facility] ([facility] ) Systolic blood pressure 132 mm[Hg] 132 mm[Hg] M EDENT ([facility]) Diastolic blood pressure 78 mm[Hg] 78 mm[Hg] [facility] ([facility]) Heart rate 74 /min 74 /min [facility] ([facility]) Body temperature 98.6 [degF] 98.6 [degF] [facility] ([facility]) Body weight 256.00 [lb_av] 256.00 [lb_av] MEDEN T ([facility]) Body weight 116.122 kg 116.122 kg [facility] ([facility]) Body height 64 [in_i] 64 [in_i] [facility] ([facility]) 5'4" Body mass index (BMI) [Ratio] 43.9 kg/m2 43.9 k g/m2 [facility] ([facility]) Body surface area Derived from formula 2.17 m2 2.17 m2 [facility] ([facility]) ID Date Data Source [id number] 05/12/2020 03:41:29 PM EDT [facility] Name Value Range Interpretation Code Description Data Source(s) WEIGHT RECORDED 250.00 pounds 250.00 pounds [facility] Height 64 Inches 064 Inches [facility]
--- NOTE | 2021-07-06 18:42 | REP ---
INDICATION: ventral hernia superior umbilicus, sudden onset pain. COMPARISON: None. TECHNIQUE: Real-time sonographic evaluation of anterior abdominal wall performed at rest and with Valsalva maneuver. FINDINGS: A defect is seen in the anterior abdominal wall at the site of the palpable lump in the supraumbilical region. The defect is 2 cm in diameter. There is a hernia sac containing peritoneal fat. No bowel is present. The hernia is not reducible. IMPRESSION: Supraumbilical anterior abdominal hernia containing fat but no bowel. There hernia is not reducible. Defect is 2 cm in diameter. <Electronically signed by Isaias Rodriguez > 07/06/21 [id number]
[2021-07-06 20:03] VITALS: BP 138/73
== END 2021-07-06 20:08 | disposition home or self-care (01) ==
LOC: M ED 14:24
DX: K43.9 Ventral hernia without obstruction or gangrene (principal); Z88.1 Allergy status to other antibiotic agents; Z79.899 Other long term (current) drug therapy

== ENCOUNTER → 2021-08-17 | Outpatient (CLI) | payer OTHER ==
[~2021-08-17] MED LIST: LEVO200T4; PANT40TA29; SERT50TA29 PO
[2021-08-17 10:23] LABS: BASO # 0.1 10^3/uL (0.0-0.2); BASO % 1.4 % (0.0-1.0); EOS # 0.2 10^3/uL (0.0-0.5); EOS % 2.6 % (0.0-3.0); HEMATOCRIT 35.7 % (36.0-47.0); HEMOGLOBIN 11.2 g/dl (12.0-15.5); LYMPH # 2.6 10^3/uL (1.5-5.0); LYMPH % 28.1 % (24.0-44.0); MEAN CORPUSCULAR HEMOGLOBIN 27.1 pg (27.0-33.0); MEAN CORPUSCULAR HGB CONC 31.4 g/dl (32.0-36.5); MEAN CORPUSCULAR VOLUME 86.4 fl (80.0-96.0); MONO # 0.5 10^3/uL (0.0-0.8); NEUTROPHILS # 5.8 10^3/uL (1.5-8.5); NEUTROPHILS % 62.4 % (36.0-66.0); PLATELET COUNT, AUTOMATED 343 10^3/uL (150-450); RED BLOOD COUNT 4.13 10^6/uL (4.00-5.40); WHITE BLOOD COUNT 9.4 10^3/uL (4.0-10.0)
[2021-08-17 11:52] LABS: ALBUMIN 4.3 GM/DL (3.2-5.2); BILIRUBIN,TOTAL 0.4 MG/DL (0.2-1.0); CALCIUM LEVEL 9.1 MG/DL (8.5-10.1); CHOLESTEROL RISK RATIO 9.073 (<5); CREATININE FOR GFR 1.17 MG/DL (0.55-1.30); FREE T4 0.3 NG/DL (0.76-1.46); GLOMERULAR FILTRATION RATE 58.2 (>60); POTASSIUM SERUM 4.3 MEQ/L (3.5-5.1); TOTAL 25(OH) VITAMIN D 13.8 NG/ML (30.0-100.0); TOTAL PROTEIN 8.4 GM/DL (6.4-8.2)
== END ==
LOC: M PLALAB 09:27
PROVIDERS: ATTEND Nurse Practitioner Family
DX: E03.9 Hypothyroidism, unspecified (principal); E55.9 Vitamin D deficiency, unspecified; Z13.220 Encounter for screening for lipoid disorders; Z13.1 Encounter for screening for diabetes mellitus

== ENCOUNTER → 2021-09-26 | Outpatient (CLI) | payer OTHER ==
[~2021-09-26] MED LIST changes: +AUGM875T28 PO; +BUSP15TA47 PO; +BUSP5TA PO; +ERYT-52; +LEVO-92 PO; +LEVO125T4; +LEVO2TA; +MULTTAB20 PO; +OMEP40CA4 PO; +ONDA4TAB6 PO; +OXYC1TAB23; +PANT40TA29 PO; +PENI500T PO; +PERC5TAB12 PO; +POLY2.5S OP; +REGL10TA6 PO; +SERT-141 PO; +SERT25TA85 PO; +SYNT25TA; +TRAZ-257 PO; +XANA0.25 PO; +ZOLO25TA PO
== END ==
LOC: M LABSMTC 09:37
PROVIDERS: ATTEND Anesthesiology
DX: Z01.812 Encounter for preprocedural laboratory examination (principal); Z20.822 Contact with and (suspected) exposure to COVID-19

== ENCOUNTER → 2021-09-27 | Outpatient (CLI) | payer OTHER ==
[2021-09-27 10:20] LABS: APPEARANCE, URINE HAZY (CLEAR); BACTERIA, URINE AUTO NEGATIVE (NEGATIVE); BILIRUBIN, URINE AUTO NEGATIVE (NEGATIVE); BLOOD, URINE BLOOD 1+ (NEGATIVE); COLOR, URINE YELLOW (YELLOW); GLUCOSE, URINE (UA) AUTO NEGATIVE (NEGATIVE); KETONE, URINE AUTO TRACE mg/dL (NEGATIVE); LEUKOCYTE ESTERASE, URINE AUTO NEGATIVE (NEGATIVE); MUCUS, URINE LARGE (NEGATIVE); NITRITE, URINE AUTO NEGATIVE (NEGATIVE); PROTEIN, URINE AUTO 1+ mg/dL (NEGATIVE); RBC, URINE AUTO 4 /HPF (0-3); SPECIFIC GRAVITY URINE AUTO 1.025 (1.002-1.035); SQUAMOUS EPITHELIAL CELL UR AU 1 /HPF (0-6); WBC, URINE AUTO 5 /HPF (0-3)
[2021-09-27 10:24] LABS: BASO # 0.1 10^3/uL (0.0-0.2); BASO % 0.8 % (0.0-1.0); EOS # 0.3 10^3/uL (0.0-0.5); EOS % 2.8 % (0.0-3.0); HEMATOCRIT 34.1 % (36.0-47.0); HEMOGLOBIN 10.7 g/dl (12.0-15.5); LYMPH # 2.3 10^3/uL (1.5-5.0); LYMPH % 24.1 % (24.0-44.0); MEAN CORPUSCULAR HEMOGLOBIN 27.1 pg (27.0-33.0); MEAN CORPUSCULAR HGB CONC 31.4 g/dl (32.0-36.5); MEAN CORPUSCULAR VOLUME 86.3 fl (80.0-96.0); MONO # 0.5 10^3/uL (0.0-0.8); MONO % 4.8 % (2.0-8.0); NEUTROPHILS # 6.4 10^3/uL (1.5-8.5); PLATELET COUNT, AUTOMATED 350 10^3/uL (150-450); RED BLOOD COUNT 3.95 10^6/uL (4.00-5.40); WHITE BLOOD COUNT 9.5 10^3/uL (4.0-10.0)
[2021-09-27 10:34] LABS: INR 0.93; PROTHROMBIN TIME 12.9 SECONDS (12.7-14.5)
[2021-09-27 10:35] LABS: PARTIAL THROMBOPLASTIN TIME 31.3 SECONDS (25.9-37.0)
[2021-09-27 14:06] LABS: BILIRUBIN,TOTAL 0.3 MG/DL (0.2-1.0); CALCIUM LEVEL 8.8 MG/DL (8.5-10.1); CREATININE FOR GFR 1.2 MG/DL (0.55-1.30); FREE T4 0.37 NG/DL (0.76-1.46); GLOMERULAR FILTRATION RATE 56.5 (>60); POTASSIUM SERUM 3.9 MEQ/L (3.5-5.1); TOTAL PROTEIN 8.2 GM/DL (6.4-8.2)
== END ==
LOC: M PLALAB 08:45
PROVIDERS: ATTEND Family Medicine
DX: E03.9 Hypothyroidism, unspecified (principal)

== ENCOUNTER → 2021-11-22 | Outpatient (CLI) | payer OTHER ==
[2021-11-22 13:10] LABS: BASO # 0.1 10^3/uL (0.0-0.2); EOS # 0.2 10^3/uL (0.0-0.5); EOS % 1.6 % (0.0-3.0); HEMATOCRIT 36.4 % (36.0-47.0); HEMOGLOBIN 11.2 g/dl (12.0-15.5); LYMPH % 20.4 % (24.0-44.0); MEAN CORPUSCULAR HEMOGLOBIN 26.2 pg (27.0-33.0); MEAN CORPUSCULAR HGB CONC 30.8 g/dl (32.0-36.5); MONO # 0.7 10^3/uL (0.0-0.8); MONO % 6.7 % (2.0-8.0); NEUTROPHILS # 6.9 10^3/uL (1.5-8.5); NEUTROPHILS % 69.8 % (36.0-66.0); PLATELET COUNT, AUTOMATED 340 10^3/uL (150-450); RED BLOOD COUNT 4.28 10^6/uL (4.00-5.40); WHITE BLOOD COUNT 9.9 10^3/uL (4.0-10.0)
[2021-11-22 13:56] LABS: FREE T4 0.54 NG/DL (0.76-1.46); THYROID STIMULATING HORMONE 64.9 uIU/ML (0.358-3.740)
== END ==
LOC: M PLALAB 10:23
PROVIDERS: ATTEND Family Medicine
DX: E03.9 Hypothyroidism, unspecified (principal)

== ENCOUNTER → 2022-01-09 | Outpatient (CLI) | payer OTHER ==
[2022-01-09 16:01] LABS: FREE T4 0.41 NG/DL (0.76-1.46); THYROID STIMULATING HORMONE 87.9 uIU/ML (0.358-3.740)
== END ==
LOC: M PLALAB 14:03
PROVIDERS: ATTEND Nurse Practitioner Family
DX: E03.9 Hypothyroidism, unspecified (principal)

== ENCOUNTER → 2022-03-14 | Outpatient (CLI) | payer OTHER ==
[~2022-03-14] MED LIST changes: -ERYT-52; +ERYT-88
[2022-03-14 15:38] LABS: BASO # 0.1 10^3/uL (0.0-0.2); BASO % 0.9 % (0.0-1.0); EOS # 0.3 10^3/uL (0.0-0.5); EOS % 3.2 % (0.0-3.0); HEMOGLOBIN 11.2 g/dl (12.0-15.5); LYMPH # 2.5 10^3/uL (1.5-5.0); MEAN CORPUSCULAR HEMOGLOBIN 26.4 pg (27.0-33.0); MEAN CORPUSCULAR HGB CONC 31.1 g/dl (32.0-36.5); MEAN CORPUSCULAR VOLUME 84.9 fl (80.0-96.0); MONO # 0.6 10^3/uL (0.0-0.8); NEUTROPHILS # 6.1 10^3/uL (1.5-8.5); NEUTROPHILS % 63.3 % (36.0-66.0); PLATELET COUNT, AUTOMATED 382 10^3/uL (150-450); RED BLOOD COUNT 4.24 10^6/uL (4.00-5.40); WHITE BLOOD COUNT 9.7 10^3/uL (4.0-10.0)
[2022-03-14 15:51] LABS: ALBUMIN 3.8 GM/DL (3.2-5.2); ALT/SGPT 31 U/L (12-78); BILIRUBIN,TOTAL 0.4 MG/DL (0.2-1.0); BLOOD UREA NITROGEN 10 MG/DL (7-18); CALCIUM LEVEL 9.7 MG/DL (8.5-10.1); CARBON DIOXIDE LEVEL 28 MEQ/L (21-32); CHLORIDE LEVEL 103 MEQ/L (98-107); CHOLESTEROL LEVEL 304 MG/DL (<200); CHOLESTEROL RISK RATIO 8.216 (<5); CREATININE FOR GFR 1.03 MG/DL (0.55-1.30); FREE T4 0.63 NG/DL (0.76-1.46); GLOMERULAR FILTRATION RATE > 60.0 (>60); GLUCOSE, FASTING 88 MG/DL (70-100); HDL CHOLESTEROL 37 MG/DL (>40); LDL CHOLESTEROL 217 MG/DL (<100); NON-HDL-C 267 MG/DL; POTASSIUM SERUM 4.1 MEQ/L (3.5-5.1); SODIUM LEVEL 137 MEQ/L (136-145); TOTAL PROTEIN 8.2 GM/DL (6.4-8.2); TRIGLYCERIDES LEVEL 250 MG/DL (<150)
[2022-03-14 16:02] LABS: HEMOGLOBIN A1c 5.9 %
== END ==
LOC: M PLALAB 13:58
PROVIDERS: ATTEND Nurse Practitioner Family
DX: E03.9 Hypothyroidism, unspecified (principal); R73.01 Impaired fasting glucose; E78.5 Hyperlipidemia, unspecified

== ENCOUNTER → 2022-05-11 | Outpatient (CLI) | payer OTHER ==
[2022-05-11 15:55] LABS: FREE T4 1.05 NG/DL (0.76-1.46); THYROID STIMULATING HORMONE 31.6 uIU/ML (0.358-3.740)
== END ==
LOC: M PLALAB 12:06
PROVIDERS: ATTEND Nurse Practitioner Family
DX: E03.9 Hypothyroidism, unspecified (principal)

== ENCOUNTER 2022-11-09 12:05 | Emergency (ER) | payer OTHER ==
[~2022-11-09] VITALS: Ht 165.1 cm; Wt 138.2 kg
[2022-11-09] MEDS ORDERED: MORPHINE 10 MG/ML 1ML VIAL IM ONE (13:05)
[2022-11-09 13:57] VITALS: BP 166/94
== END 2022-11-09 14:30 | disposition home or self-care (01) ==
LOC: M ED 12:05
DX: S82.61XA Displaced fracture of lateral malleolus of right fibula, initial encounter for closed fracture (principal); X50.0XXA Overexertion from strenuous movement or load, initial encounter; F41.9 Anxiety disorder, unspecified; F32.A Depression, unspecified; G43.909 Migraine, unspecified, not intractable, without status migrainosus; Z88.1 Allergy status to other antibiotic agents; Z88.8 Allergy status to other drugs, medicaments and biological substances; Z91.018 Allergy to other foods; Z91.048 Other nonmedicinal substance allergy status; Z79.52 Long term (current) use of systemic steroids; Z79.899 Other long term (current) drug therapy
CPT/HCPCS: 73590; 73610; 96372; 99283; J2270

== ENCOUNTER → 2022-12-08 | Outpatient (CLI) | payer OTHER | LOC: M SOG 10:04 | PROVIDERS: ATTEND Physician Assistant | DX: S82.64XA Nondisplaced fracture of lateral malleolus of right fibula, initial encounter for closed fracture (principal) ==

== ENCOUNTER → 2023-02-06 | Outpatient (CLI) | payer OTHER ==
[2023-02-06 11:16] LABS: FREE T4 1.4 NG/DL (0.89-1.76); THYROID STIMULATING HORMONE 6.065 uIU/ML (0.55-4.78)
== END ==
LOC: M PLALAB 08:52
PROVIDERS: ATTEND Nurse Practitioner Family
DX: E03.9 Hypothyroidism, unspecified (principal)

== ENCOUNTER → 2023-03-05 | Outpatient (CLI) | payer OTHER | LOC: M RAD 08:42 | PROVIDERS: ATTEND Surgery | DX: K43.9 Ventral hernia without obstruction or gangrene (principal) ==

== ENCOUNTER → 2023-04-03 | Outpatient (REF) | payer OTHER ==
[~2023-04-03] MED LIST changes: +LEVO300T21 PO; +ZOLO100T PO
== END ==
LOC: M SFHCPLAZ 13:58
PROVIDERS: ATTEND Family Medicine
DX: E03.9 Hypothyroidism, unspecified (principal); D50.9 Iron deficiency anemia, unspecified; E78.5 Hyperlipidemia, unspecified; R73.01 Impaired fasting glucose; Z53.9 Procedure and treatment not carried out, unspecified reason

== ENCOUNTER → 2023-04-05 | Outpatient (CLI) | payer OTHER ==
[~2023-04-05] MED LIST changes: -LEVO300T21 PO; -ZOLO100T PO
[2023-04-05 13:08] LABS: BASO # 0.1 10^3/uL (0.0-0.2); BASO % 0.8 % (0.0-1.0); EOS # 0.2 10^3/uL (0.0-0.5); EOS % 2.6 % (0.0-3.0); HEMATOCRIT 32.9 % (36.0-47.0); HEMOGLOBIN 9.9 g/dl (12.0-15.5); LYMPH # 2.2 10^3/uL (1.5-5.0); LYMPH % 24.7 % (24.0-44.0); MEAN CORPUSCULAR HEMOGLOBIN 24.6 pg (27.0-33.0); MEAN CORPUSCULAR HGB CONC 30.1 g/dl (32.0-36.5); MEAN CORPUSCULAR VOLUME 81.6 fl (80.0-96.0); MONO # 0.4 10^3/uL (0.0-0.8); MONO % 4.7 % (2.0-8.0); NEUTROPHILS # 5.9 10^3/uL (1.5-8.5); NEUTROPHILS % 66.6 % (36.0-66.0); PLATELET COUNT, AUTOMATED 444 10^3/uL (150-450); RED BLOOD COUNT 4.03 10^6/uL (4.00-5.40); WHITE BLOOD COUNT 8.9 10^3/uL (4.0-10.0)
[2023-04-05 13:19] LABS: HEMOGLOBIN A1c 6.3 % (4.0-6.0)
[2023-04-05 13:35] LABS: CHOLESTEROL RISK RATIO 6.51 (<5); HDL CHOLESTEROL 33.3 MG/DL (>40); LDL CHOLESTEROL 126.5 MG/DL (<100); NON-HDL-C 183.7 MG/DL
[2023-04-05 13:36] LABS: THYROID STIMULATING HORMONE 6.409 uIU/ML (0.55-4.78)
[2023-04-05 13:37] LABS: FREE T4 1.43 NG/DL (0.89-1.76)
[2023-04-06 20:07] LABS: H PYLORI SERUM QUANT IgG ABY 0.21 (0.00-0.79); TISSUE TRANSGLUTAMINASE IgA <2 U/mL (0-3)
== END ==
LOC: M PLALAB 10:12
PROVIDERS: ATTEND Family Medicine
DX: E03.9 Hypothyroidism, unspecified (principal); D50.9 Iron deficiency anemia, unspecified; E78.5 Hyperlipidemia, unspecified; R73.01 Impaired fasting glucose

== ENCOUNTER 2023-04-19 06:02 | Day surgery (SDC) | payer OTHER ==
[~2023-04-19] VITALS: Ht 165.1 cm; Wt 133.7 kg
[~2023-04-19 06:02] MED LIST changes: +LEVO300T21 PO; +ZOLO100T PO; +ceFAZolin SOD 2 GM in IV 1 EA IV ONE
[2023-04-19] MEDS ORDERED: LR 1,000 ML IV SCH ×2 (06:55→08:55)
[2023-04-19] MEDS ORDERED: ACETAMINOPHEN 1000MG 100ML IV BAG As Ordered ONE ×2 (07:13→08:08)
[2023-04-19] MEDS ORDERED: MIDAZOLAM INJ 2MG/2ML VIAL As Ordered ONE (07:13)
[2023-04-19] MEDS ORDERED: LIDOCAINE 2% 100MG/5ML SDV (FOR ANES.) As Ordered ONE (07:13)
[2023-04-19] MEDS ORDERED: SUGAMMADEX SODIUM 500 MG/5 ML VIAL (BRIDION) As Ordered ONE (07:13)
[2023-04-19] MEDS ORDERED: propofoL 200 MG/20 ML VIAL As Ordered ONE (07:13)
[2023-04-19] MEDS ORDERED: ONDANSETRON 4MG 2ML VIAL As Ordered ONE (07:13)
[2023-04-19] MEDS ORDERED: KETOROLAC 60MG 2ML VIAL As Ordered ONE (07:13)
[2023-04-19] MEDS ORDERED: fentaNYL 100 MCG/2 ML INJECTION As Ordered ONE (07:13)
[2023-04-19] MEDS ORDERED: ROCURONIUM BROMIDE 50MG/5ML VIAL As Ordered ONE (07:13)
[2023-04-19] MEDS ORDERED: ceFAZolin SOD 1 GM in D5W MINI-BAG PLUS 50 ML IV ONE (07:25)
[2023-04-19] MEDS ORDERED: SCOPOLAMINE 1MG TRANSDERMAL PATCH As Ordered ONE (07:30)
[2023-04-19] MEDS ORDERED: ceFAZolin 1GM VIAL As Ordered ONE (07:51)
[2023-04-19] MEDS ORDERED: METOCLOPRAMIDE INJ 10MG/2ML VIAL As Ordered ONE (08:14)
[2023-04-19] MEDS ORDERED: fentaNYL 100 MCG/2 ML INJECTION IV PRN (08:55)
[2023-04-19] MEDS ORDERED: ONDANSETRON 4MG 2ML VIAL IV PRN (08:55)
[2023-04-19] MEDS ORDERED: NORCO, ANEXSIA 5/325MG TABLET (HYDROcodone/ACETAMINOPHEN) PO PRN (09:35)
[2023-04-19] MEDS ORDERED: KETOROLAC 30 MG/ML 1ML VIAL IV ONE (09:35)
[2023-04-19] MEDS ORDERED: oxyCODONE 5MG TAB PO PRN (09:45)
[2023-04-19 11:26] VITALS: BP 142/88; TEMP 97; O2SAT 96
== END 2023-04-19 11:29 | disposition home or self-care (01) ==
LOC: M SDC 06:02
PROVIDERS: ATTEND Surgery
DX: K43.6 Other and unspecified ventral hernia with obstruction, without gangrene (principal); E66.01 Morbid (severe) obesity due to excess calories; Z68.42 Body mass index [BMI] 45.0-49.9, adult; G47.30 Sleep apnea, unspecified; T88.59XD Other complications of anesthesia, subsequent encounter; Z79.899 Other long term (current) drug therapy; Z88.0 Allergy status to penicillin; Z88.1 Allergy status to other antibiotic agents; Z90.89 Acquired absence of other organs; Z91.018 Allergy to other foods; Z91.040 Latex allergy status; Z91.048 Other nonmedicinal substance allergy status
CPT/HCPCS: 49616; 81025; C1781; J0131; J0665; J0690; J1100; J1885; J2250; J2405; J2765; J3010

== ENCOUNTER → 2023-10-08 | Outpatient (CLI) | payer OTHER ==
[~2023-10-08] MED LIST changes: -ceFAZolin SOD 2 GM in IV 1 EA IV ONE
[2023-10-08 14:47] LABS: BASO # 0.1 10^3/uL (0.0-0.2); BASO % 0.9 % (0.0-1.0); EOS # 0.2 10^3/uL (0.0-0.5); EOS % 1.6 % (0.0-3.0); HEMATOCRIT 32.3 % (36.0-47.0); HEMOGLOBIN 9.6 g/dl (12.0-15.5); LYMPH # 2.7 10^3/uL (1.5-5.0); LYMPH % 25.1 % (24.0-44.0); MEAN CORPUSCULAR HEMOGLOBIN 23.3 pg (27.0-33.0); MEAN CORPUSCULAR HGB CONC 29.7 g/dl (32.0-36.5); MEAN CORPUSCULAR VOLUME 78.4 fl (80.0-96.0); MONO # 0.6 10^3/uL (0.0-0.8); MONO % 5.6 % (2.0-8.0); NEUTROPHILS # 7.1 10^3/uL (1.5-8.5); NEUTROPHILS % 65.4 % (36.0-66.0); PLATELET COUNT, AUTOMATED 427 10^3/uL (150-450); RED BLOOD COUNT 4.12 10^6/uL (4.00-5.40); WHITE BLOOD COUNT 10.9 10^3/uL (4.0-10.0)
[2023-10-08 14:54] LABS: HEMOGLOBIN A1c 6.1 % (4.0-6.0)
[2023-10-08 15:14] LABS: THYROID STIMULATING HORMONE 31.785 uIU/ML (0.55-4.78)
[2023-10-08 15:15] LABS: ALBUMIN 3.7 G/DL (3.2-5.2); ALKALINE PHOSPHATASE 86 U/L (46-116); ALT/SGPT 28 U/L (7.0-40); AST/SGOT 25 U/L (<34); BILIRUBIN,TOTAL 0.4 MG/DL (0.3-1.2); BLOOD UREA NITROGEN 7 MG/DL (9-23); CALCIUM LEVEL 8.8 MG/DL (8.5-10.1); CARBON DIOXIDE LEVEL 28 MMOL/L (20-31); CHLORIDE LEVEL 106 MMOL/L (98-107); CHOLESTEROL LEVEL 239 MG/DL (<200); CHOLESTEROL RISK RATIO 6.17 (<5); CREATININE FOR GFR 0.77 MG/DL (0.55-1.30); GLOMERULAR FILTRATION RATE > 60.0 (>60); GLUCOSE, FASTING 90 MG/DL (60-100); HDL CHOLESTEROL 38.7 MG/DL (>40); IRON (FE) 23 UG/DL (50-170); LDL CHOLESTEROL 155.7 MG/DL (<100); NON-HDL-C 200.3 MG/DL; PERCENT SATURATION 5.3 % (13.2-45.0); POTASSIUM SERUM 4.1 MMOL/L (3.5-5.1); SODIUM LEVEL 139 MMOL/L (136-145); TOTAL 25(OH) VITAMIN D 12.3 NG/ML (20.0-100.0); TOTAL IRON BINDING CAPACITY 432 UG/DL (250-425); TOTAL PROTEIN 7.6 G/DL (5.7-8.2); TRIGLYCERIDES LEVEL 223 MG/DL (<150)
[2023-10-08 15:16] LABS: FREE T4 0.86 NG/DL (0.89-1.76)
== END ==
LOC: M PLALAB 10:47
PROVIDERS: ATTEND Nurse Practitioner Family
DX: E03.9 Hypothyroidism, unspecified (principal); R73.01 Impaired fasting glucose; E78.5 Hyperlipidemia, unspecified; D64.9 Anemia, unspecified; E55.9 Vitamin D deficiency, unspecified

== ENCOUNTER 2024-03-07 13:59 | Emergency (ER) | payer OTHER ==
[~2024-03-07] VITALS: Ht 165.1 cm; Wt 128.0 kg
[~2024-03-07 13:59] MED LIST changes: +ONDA-282 PO; -ONDA4TAB6 PO
[2024-03-07] MEDS ORDERED: FERR325T19 (14:21)
[2024-03-07] MEDS ORDERED: ATOR40TA75 (14:21)
[2024-03-07] MEDS ORDERED: ZOLO100T (14:21)
[2024-03-07 14:56] LABS: BASO # 0.1 10^3/uL (0.0-0.2); BASO % 0.7 % (0.0-1.0); EOS # 0.2 10^3/uL (0.0-0.5); EOS % 1.2 % (0.0-3.0); HEMATOCRIT 32.7 % (36.0-47.0); HEMOGLOBIN 9.8 g/dl (12.0-15.5); LYMPH % 24.3 % (24.0-44.0); MEAN CORPUSCULAR HEMOGLOBIN 22.4 pg (27.0-33.0); MEAN CORPUSCULAR VOLUME 74.8 fl (80.0-96.0); MONO # 0.7 10^3/uL (0.0-0.8); MONO % 5.7 % (2.0-8.0); NEUTROPHILS # 8.3 10^3/uL (1.5-8.5); NEUTROPHILS % 67.6 % (36.0-66.0); PLATELET COUNT, AUTOMATED 454 10^3/uL (150-450); RED BLOOD COUNT 4.37 10^6/uL (4.00-5.40); WHITE BLOOD COUNT 12.3 10^3/uL (4.0-10.0)
[2024-03-07 15:22] LABS: ALKALINE PHOSPHATASE 78 U/L (46-116); ALT/SGPT 18 U/L (7.0-40); AST/SGOT 15 U/L (<34); BILIRUBIN,DIRECT 0.1 MG/DL (<0.4); BILIRUBIN,TOTAL 0.6 MG/DL (0.3-1.2); BLOOD UREA NITROGEN 7 MG/DL (9-23); CALCIUM LEVEL 8.7 MG/DL (8.5-10.1); CARBON DIOXIDE LEVEL 27 MMOL/L (20-31); CHLORIDE LEVEL 104 MMOL/L (98-107); CK-MB VALUE MASS < 1.0 NG/ML (<3.6); CPK CREATINE PHOSPHOKINASE 98 U/L (34-145); CREATININE FOR GFR 0.94 MG/DL (0.55-1.30); GLOMERULAR FILTRATION RATE > 60.0 (>60); GLUCOSE, FASTING 90 MG/DL (60-100); HCG, SERUM QUANTITATIVE 548.1 MIU/ML (<4.2); MB/CK RELATIVE INDEX 1.02 (< OR =4); POTASSIUM SERUM 3.7 MMOL/L (3.5-5.1); SODIUM LEVEL 136 MMOL/L (136-145); TOTAL PROTEIN 7.6 G/DL (5.7-8.2)
[2024-03-07] MEDS: ONDANSETRON 4MG 2ML VIAL IV ONE (15:49)
[2024-03-07] MEDS: LR 1,000 ML IV ONE (15:49)
[2024-03-07 16:08] LABS: D-DIMER QUANT 0.47 ug/mL (<0.5); INR 1.06; PARTIAL THROMBOPLASTIN TIME 26.8 SECONDS (24.8-34.2); PROTHROMBIN TIME 13.4 SECONDS (12.5-14.5)
[2024-03-07 16:24] LABS: C REACTIVE PROTEIN QUANTITATIV 2.2 MG/DL (<1.0)
[2024-03-07 16:25] LABS: CK-MB VALUE MASS < 1.0 NG/ML (<3.6)
[2024-03-07 16:30] LABS: CPK CREATINE PHOSPHOKINASE 98 U/L (34-145); MB/CK RELATIVE INDEX 1.02 (< OR =4)
[2024-03-07] MEDS ORDERED: LABETALOL 100MG/20ML VIAL IV STA (17:41)
[2024-03-07 18:00] VITALS: BP 164/72
[2024-03-07] MEDS: LABETALOL 100MG TAB PO ONE (18:00)
[2024-03-07] MEDS ORDERED: LABE100T6 PO (18:47)
[2024-03-07] MEDS ORDERED: ONDA-282 PO (18:47)
[2024-03-07] MEDS ORDERED: NITR-67 PO (18:47)
[2024-03-07] MEDS: NITROFURANTOIN (MACROBID) 100 MG CAP PO ONE (19:18)
[2024-03-07 19:26] VITALS: BP 152/89; TEMP 98; O2SAT 97
== END 2024-03-07 19:28 | disposition home or self-care (01) ==
LOC: M ED 13:59
DX: O21.9 Vomiting of pregnancy, unspecified (principal); O23.41 Unspecified infection of urinary tract in pregnancy, first trimester; O12.11 Gestational proteinuria, first trimester; F12.10 Cannabis abuse, uncomplicated; Z88.1 Allergy status to other antibiotic agents; Z88.8 Allergy status to other drugs, medicaments and biological substances; Z91.040 Latex allergy status; Z91.018 Allergy to other foods; Z91.048 Other nonmedicinal substance allergy status; Z79.02 Long term (current) use of antithrombotics/antiplatelets; Z79.83 Long term (current) use of bisphosphonates; Z79.899 Other long term (current) drug therapy; Z3A.00 Weeks of gestation of pregnancy not specified
CPT/HCPCS: 71045; 80048; 80076; 81001; 82550; 82553; 83605; 83690; 84484; 84702; 85025; 85379; 85610; 85730; 86140; 87086; 87486; 87581; 87633; 87798; 93005; 96365; 96366; 96375; 99284; J2405

== ENCOUNTER → 2024-04-30 | Outpatient (CLI) | payer OTHER ==
[~2024-04-30] MED LIST changes: +ATOR40TA75; +FERR325T19; +LABE100T6 PO; +NITR-67 PO; +ZOLO100T
[2024-04-30 12:56] LABS: BASO # 0.1 10^3/uL (0.0-0.2); EOS # 0.1 10^3/uL (0.0-0.5); EOS % 1.4 % (0.0-3.0); HEMATOCRIT 33.7 % (36.0-47.0); HEMOGLOBIN 10.1 g/dl (12.0-15.5); LYMPH # 2.4 10^3/uL (1.5-5.0); LYMPH % 25.5 % (24.0-44.0); MEAN CORPUSCULAR HEMOGLOBIN 22.5 pg (27.0-33.0); MEAN CORPUSCULAR VOLUME 75.1 fl (80.0-96.0); MONO # 0.5 10^3/uL (0.0-0.8); MONO % 5.5 % (2.0-8.0); NEUTROPHILS # 6.1 10^3/uL (1.5-8.5); NEUTROPHILS % 66.3 % (36.0-66.0); PLATELET COUNT, AUTOMATED 474 10^3/uL (150-450); RED BLOOD COUNT 4.49 10^6/uL (4.00-5.40); WHITE BLOOD COUNT 9.3 10^3/uL (4.0-10.0)
[2024-04-30 12:59] LABS: IRON (FE) 78 UG/DL (50-170)
[2024-04-30 13:00] LABS: PERCENT SATURATION 17.7 % (13.2-45.0); TOTAL IRON BINDING CAPACITY 441 UG/DL (250-425)
[2024-04-30 13:03] LABS: ALBUMIN 3.9 G/DL (3.2-5.2); ALKALINE PHOSPHATASE 86 U/L (46-116); ALT/SGPT 17 U/L (7.0-40); AST/SGOT 13 U/L (<34); BILIRUBIN,TOTAL 0.4 MG/DL (0.3-1.2); BLOOD UREA NITROGEN 11 MG/DL (9-23); CALCIUM LEVEL 9.2 MG/DL (8.5-10.1); CARBON DIOXIDE LEVEL 27 MMOL/L (20-31); CHLORIDE LEVEL 105 MMOL/L (98-107); CHOLESTEROL LEVEL 266 MG/DL (<200); CHOLESTEROL RISK RATIO 7.11 (<5); GLOMERULAR FILTRATION RATE > 60.0 (>60); GLUCOSE, FASTING 99 MG/DL (60-100); HDL CHOLESTEROL 37.4 MG/DL (>40); LDL CHOLESTEROL 188.6 MG/DL (<100); NON-HDL-C 228.6 MG/DL; POTASSIUM SERUM 4.1 MMOL/L (3.5-5.1); SODIUM LEVEL 138 MMOL/L (136-145); TOTAL PROTEIN 7.8 G/DL (5.7-8.2); TRIGLYCERIDES LEVEL 200 MG/DL (<150)
[2024-04-30 13:04] LABS: FREE T4 0.96 NG/DL (0.89-1.76)
[2024-04-30 13:13] LABS: HEMOGLOBIN A1c 5.6 % (4.0-6.0)
== END ==
LOC: M PLALAB 09:22
PROVIDERS: ATTEND Nurse Practitioner Family
DX: E78.5 Hyperlipidemia, unspecified (principal); D64.9 Anemia, unspecified; E55.9 Vitamin D deficiency, unspecified; E03.9 Hypothyroidism, unspecified; R73.01 Impaired fasting glucose

== ENCOUNTER 2024-12-20 17:34 | Emergency (ER) | payer OTHER ==
[~2024-12-20] VITALS: Ht 162.6 cm; Wt 119.5 kg
[2024-12-20 17:41] VITALS: BP 140/96; TEMP 98; O2SAT 98
[2024-12-20] MEDS ORDERED: B-122500 PO (18:19)
== END 2024-12-20 17:45 | disposition admitted as inpatient to this hospital (09) ==
LOC: M ED 17:34
DX: Z53.21 Procedure and treatment not carried out due to patient leaving prior to being seen by health care provider (principal)

== ENCOUNTER 2024-12-20 17:51 | Outpatient (CLI) | payer OTHER ==
[~2024-12-20] VITALS: Ht 162.6 cm; Wt 119.2 kg
[2024-12-20 18:13] VITALS: BP 133/72
[2024-12-20] MEDS ORDERED: B-122500 PO (18:19)
== END 2024-12-20 19:10 | disposition home or self-care (01) ==
LOC: M LDO 17:51
PROVIDERS: ATTEND Specialist
DX: O99.343 Other mental disorders complicating pregnancy, third trimester (principal); O36.8130 Decreased fetal movements, third trimester, not applicable or unspecified; O99.283 Endocrine, nutritional and metabolic diseases complicating pregnancy, third trimester; F41.0 Panic disorder [episodic paroxysmal anxiety]; E03.9 Hypothyroidism, unspecified; Z79.899 Other long term (current) drug therapy; Z3A.28 28 weeks gestation of pregnancy
CPT/HCPCS: 59025; G0463

== ENCOUNTER 2025-01-08 09:22 | Emergency (ER) | payer OTHER ==
[~2025-01-08] VITALS: Ht 162.6 cm; Wt 115.6 kg
[~2025-01-08 09:22] MED LIST changes: +B-122500 PO
[2025-01-08 09:23] VITALS: BP 151/77; TEMP 97.6; O2SAT 98
[2025-01-08] MEDS ORDERED: LABE20TAB PO (09:58)
== END 2025-01-08 09:33 | disposition admitted as inpatient to this hospital (09) ==
LOC: M ED 09:22
DX: Z53.21 Procedure and treatment not carried out due to patient leaving prior to being seen by health care provider (principal)

== ENCOUNTER 2025-01-08 09:39 | Outpatient (CLI) | payer OTHER ==
[~2025-01-08] VITALS: Ht 162.6 cm; Wt 116.1 kg
[2025-01-08] MEDS ORDERED: LABE20TAB PO (09:58)
[2025-01-08] MEDS ORDERED: HOME MED LIST COMPLETE! XX SCH (10:00)
[2025-01-08 10:05] VITALS: BP 128/60
[2025-01-08 10:21] VITALS: BP 116/59
[2025-01-08] MEDS: ACETAMINOPHEN 500 MG TAB PO ONE (10:31)
[2025-01-08 10:35] VITALS: BP 132/61
[2025-01-08 10:50] VITALS: BP 119/58; O2SAT 96
[2025-01-08 11:28] LABS: HEMATOCRIT 26.7 % (36.0-47.0); HEMOGLOBIN 8.1 g/dl (12.0-15.5); MEAN CORPUSCULAR HEMOGLOBIN 24.1 pg (27.0-33.0); MEAN CORPUSCULAR HGB CONC 30.3 g/dl (32.0-36.5); MEAN CORPUSCULAR VOLUME 79.5 fl (80.0-96.0); PLATELET COUNT, AUTOMATED 315 10^3/uL (150-450); RED BLOOD COUNT 3.36 10^6/uL (4.00-5.40); WHITE BLOOD COUNT 10.7 10^3/uL (4.0-10.0)
[2025-01-08 11:37] LABS: TOTAL PROTEIN,RANDOM URINE 30.4 MG/DL (0.0-14.0)
[2025-01-08 11:55] LABS: LDH LACTATE DEHYDROGENASE 169 U/L (120-246)
[2025-01-08 11:56] LABS: ALT/SGPT 15 U/L (7.0-40); AST/SGOT 20 U/L (<34); BILIRUBIN,TOTAL 0.4 MG/DL (0.3-1.2); GLOMERULAR FILTRATION RATE > 90.0 (>60)
[2025-01-08 11:57] LABS: URIC ACID 4.6 MG/DL (3.1-7.8)
[2025-01-08 11:57] LABS: CREATININE,RANDOM URINE 256.2 MG/DL
== END 2025-01-08 12:00 | disposition home or self-care (01) ==
LOC: M LDO 09:39
PROVIDERS: ATTEND Specialist
DX: O26.893 Other specified pregnancy related conditions, third trimester (principal); O99.343 Other mental disorders complicating pregnancy, third trimester; R51.9 Headache, unspecified; F41.9 Anxiety disorder, unspecified; R03.0 Elevated blood-pressure reading, without diagnosis of hypertension; Z3A.31 31 weeks gestation of pregnancy
CPT/HCPCS: 36415; 59025; 82247; 82570; 83615; 84156; 84450; 84460; 84550; 85027; G0463

== ENCOUNTER 2025-08-20 04:11 | Emergency (ER) | payer OTHER ==
[~2025-08-20] VITALS: Ht 165.1 cm; Wt 125.8 kg
[~2025-08-20 04:11] MED LIST changes: -LABE100T6 PO; +LABE100T91 PO; +LABE20TAB PO
[2025-08-20 06:49] LABS: BASO # 0.1 10^3/uL (0.0-0.2); BASO % 0.7 % (0.0-1.0); EOS # 0.3 10^3/uL (0.0-0.5); EOS % 1.8 % (0.0-3.0); LYMPH # 2.0 10^3/uL (1.5-5.0); LYMPH % 14.4 % (24.0-44.0); MONO # 0.7 10^3/uL (0.0-0.8); MONO % 5.1 % (2.0-8.0); NEUTROPHILS # 10.9 10^3/uL (1.5-8.5); NEUTROPHILS % 77.4 % (36.0-66.0); PLATELET COUNT, AUTOMATED 359 10^3/uL (150-450)
[2025-08-20 06:55] LABS: KETONE, URINE AUTO RFX NEGATIVE (NEGATIVE); LEUKOCYTE ESTERASE UR AUTO RFX NEGATIVE (NEGATIVE); MUCUS, URINE RFX SMALL (NEGATIVE); NITRITE, URINE AUTO RFX NEGATIVE (NEGATIVE); RBC, URINE AUTO RFX 0 /HPF (0-3); SQUAM EPITHELIAL CELL UR AURFX 2 /HPF (0-6); WBC, URINE AUTO RFX 1 /HPF (0-3)
[2025-08-20 07:17] LABS: ALT/SGPT 24 U/L (7.0-40); AST/SGOT 19 U/L (<34); CALCIUM LEVEL 8.8 MG/DL (8.5-10.1); CARBON DIOXIDE LEVEL 25 MMOL/L (20-31); CHLORIDE LEVEL 102 MMOL/L (98-107); CREATININE FOR GFR 0.83 MG/DL (0.55-1.30); GLOMERULAR FILTRATION RATE > 90.0 (>60); POTASSIUM SERUM 4.2 MMOL/L (3.5-5.1); SODIUM LEVEL 138 MMOL/L (136-145)
[2025-08-20 07:22] LABS: HCG, SERUM QUALITATIVE NEGATIVE (NEGATIVE)
[2025-08-20 07:30] VITALS: BP 172/97; TEMP 98.2; O2SAT 93
== END 2025-08-20 08:00 | disposition home or self-care (01) ==
LOC: M ED 04:11
DX: M54.50 Low back pain, unspecified (principal); I10 Essential (primary) hypertension; E78.5 Hyperlipidemia, unspecified; Z88.0 Allergy status to penicillin; Z88.8 Allergy status to other drugs, medicaments and biological substances; Z91.040 Latex allergy status; Z91.018 Allergy to other foods; Z91.09 Other allergy status, other than to drugs and biological substances; Z79.899 Other long term (current) drug therapy